=== PATIENT | male | born 1975 | race Caucasian/White ===

== ENCOUNTER 2020-05-10 16:14 | Emergency (ER) | payer OTHER ==
[~2020-05-10 16:14] MED LIST: IBUPROFEN600 MG PO; METFORMIN HCL500 MG PO; NORFLEX 100 MG100 MG PO; PROTONIX40 MG PO
[2020-05-10 18:37] LABS: HEMOGLOBIN 15.5 gm/dl (14.0-17.5); RED BLOOD COUNT 4.78 M/UL (4.20-5.50); WHITE BLOOD COUNT 4.3 K/UL (4.5-11.0)
[2020-05-10 18:54] LABS: BUN/CREATININE RATIO 17 (0-10)
== END 2020-05-10 19:25 | disposition home or self-care (01) ==
LOC: ER1 16:14
PROVIDERS: Physician Assistant Medical
DX: E11.65 Type 2 diabetes mellitus with hyperglycemia (principal); J45.909 Unspecified asthma, uncomplicated; F17.210 Nicotine dependence, cigarettes, uncomplicated; Z88.5 Allergy status to narcotic agent; Z79.84 Long term (current) use of oral hypoglycemic drugs; Z53.20 Procedure and treatment not carried out because of patient's decision for unspecified reasons
CPT/HCPCS: 36415; 80053; 82009; 83690; 84439; 84443; 85025; 99284